=== PATIENT | female | born 1965 | race Caucasian/White ===

== ENCOUNTER 2017-05-28 20:38 | Emergency (ER) | payer SELFPAY ==
[~2017-05-28] VITALS: Ht 180.3 cm; Wt 62.0 kg
[2017-05-28 21:16] LABS: HEMATOCRIT 46.5 % (36.0-46.0); MCH 32.7 PG (29.0-34.0); MCHC 33.5 G/DL (30.0-36.0); MCV 97.5 FL (83-99); MEAN PLAT.VOLUME 10.8 uM^3 (9.5-12.4); PLATELET COUNT 310 K/uL (156-360); RBC DIS.WIDTH-CV 12.6 % (11.8-14.6); RBC DIS.WIDTH-SD 45.3 % (39-53); RED BLOOD COUNT 4.77 M/uL (3.80-5.20); WHITE BLOOD COUNT 12.1 K/uL (4.1-10.2)
[2017-05-28 21:20] LABS: ADD MIUA? YES; BILIRUBIN NEGATIVE; BLOOD MODERATE; GLUCOSE (STRIP) 50; KETONES NEGATIVE; LEUKOCYTES MODERATE; PROTEIN (STRIP) >=500; SPECIFIC GRAVITY 1.022 (1.000-1.030)
[2017-05-28 21:27] LABS: CHLORIDE 104 mEq/L (99-109); POTASSIUM 4.1 mEq/L (3.7-5.4); SODIUM 141 mEq/L (136-147)
[2017-05-28 21:29] LABS: GLUCOSE 93 mg/dL (70-99)
[2017-05-28 21:30] LABS: ANION GAP 15 MEQ/L (2-14)
[2017-05-28 21:31] LABS: TOTAL BILIRUBIN 0.4 mg/dL (0.0-1.0)
[2017-05-28 21:33] LABS: ALKALINE PHOSPHATASE 84 IU/L (3-129); GFR ESTIMATE (CALCULATED) > 59 mL/min/
[2017-05-28 21:34] LABS: UREA NITROGEN (BUN) 20 mg/dL (9-23)
[2017-05-28 21:34] LABS: COLOR DK YELLOW ((YELLOW))
[2017-05-28 22:02] LABS: EPITHELIAL CELLS 2+ /HPF; MUCUS NONE SEEN /LPF; RED BLOOD CELLS 20-30 /HPF (0-5); WHITE BLOOD CELLS TNTC /HPF (0-5)
[2017-05-28 22:03] LABS: BACTERIA 3+ /HPF; NITRITE POSITIVE
[2017-05-28] MEDS ORDERED: OMNICEF300 MG PO (22:39)
[2017-05-28] MEDS ORDERED: PYRIDIUM100 MG PO (22:40)
[2017-05-29] VITALS: BP 106/74
== END 2017-05-29 00:03 | disposition home or self-care (01) ==
LOC: EME 20:38
PROVIDERS: Emergency Medicine
DX: N39.0 Urinary tract infection, site not specified (principal); Z87.442 Personal history of urinary calculi; F17.200 Nicotine dependence, unspecified, uncomplicated
CPT/HCPCS: 74176; 80053; 81003; 85027; 99281; 99285; J0696; J1885; J2405; J7030; J7050